=== PATIENT | female | born 1995 | race African-American/Black ===

== ENCOUNTER 2017-03-20 05:47 | Emergency (ER) | payer MEDICAID ==
[2017-03-20] MEDS ORDERED: NS 0.9% 1000 ML* 1,000 ML IV ONE (06:15)
--- NOTE | 2017-03-20 06:59 | ED ---
Duncan Salas Thomas, scribed for Richie Boland on 03/20/17 at 0622 . Abdominal Pain/Female - HPI Summary HPI Summary: The patient is a 21 year old female complaining of right-sided abdominal pain for the last two hours. She complains of nausea and diarrhea. She denies vomiting. - History of Current Complaint Chief Complaint: EDAbdPain Stated Complaint: ABD PAIN, FEVER Time Seen by Provider: 03/20/17 06:11 Hx Obtained From: Patient Onset/Duration: Lasting Hours - 2, Still Present Timing: Constant Severity Currently: Moderate Pain Intensity: 7 Pain Scale Used: 0-10 Numeric Aggravating Factor(s): Nothing Alleviating Factor(s): Nothing Associated Signs and Symptoms: Positive: Nausea, Diarrhea. Negative: Vomiting Allergies/Adverse Reactions: Allergies Allergy/AdvReac Type Severity Reaction Status Date / Time No Known Allergies Allergy Verified 03/20/17 06:41 PMH/Surg Hx/FS Hx/Imm Hx Endocrine/Hematology History: Denies: Hx Diabetes Cardiovascular History: Denies: Hx Hypertension Respiratory History: Reports: Hx Asthma History: Denies: Hx Renal Disease Neurological History: Reports: Hx Migraine Psychiatric History: Reports: Hx Anxiety, Hx Depression - SAD Infectious Disease History: No Infectious Disease History: Denies: Hx Clostridium Difficile, Hx of Known/Suspected MRSA, Hx Known/ Suspected VRE, Hx Known/Suspected VRSA, History Other Infectious Disease, Traveled Outside the [place] in Last 30 Days - Family History Known Family History: Positive: Other - Patient denies relevant FHx - Social History Alcohol Use: Rare Substance Use Type: Reports: None Smoking Status (MU): Never Smoked Tobacco Review of Systems Negative: Fever Positive: Abdominal Pain, Diarrhea, Nausea. Negative: Vomiting All Other Systems Reviewed And Are Negative: Yes Physical Exam - Summary Physical Exam Summary: Appearance: Well appearing, no pain distress Skin: warm, dry, reflects adequate perfusion Head/face: normal Eyes: EOMI, NICK ENT: normal Neck: supple, non-tender Respiratory: CTA, breath sounds present Cardiovascular: RRR, pulses symmetrical Abdomen: Soft. RLQ abdominal tenderness. Bowel: present Musculoskeletal: normal, strength/ROM intact Neuro: normal, sensory motor intact, A&Ox3 Triage Information Reviewed: Yes Vital Signs On Initial Exam: Initial Vitals Temp Pulse Resp BP Pulse Ox 98.3 F 69 18 104/57 99 03/20/17 05:51 03/20/17 05:51 03/20/17 05:51 03/20/17 05:51 03/20/17 05:51 Vital Signs Reviewed: Yes Diagnostics - Vital Signs Vital Signs Temp Pulse Resp BP Pulse Ox 03/20/17 05:51 98.3 F 69 18 104/57 99 - Laboratory Lab Statement: Any lab studies that have been ordered have been reviewed, and results considered in the medical decision making process. - EKG 23:53 Cardiac Rate: NL EKG Rhythm: Sinus Rhythm - at 74 BPM EKG Interpretation: RBBB. Abdominal Pain Fem Course/Dx - Course Course Of Treatment: The patient is a 21 year old female complaining of right- sided abdominal pain for the last two hours. She has RLQ tenderness. In the ED course the patient was given IV fluids. Bloodwork and urinalysis were obtained. The patient will be signed out to Dr. Montez pending CT Abd/Pel and labs. - Diagnoses Provider Diagnoses: Abdominal pain Discharge - Discharge Plan Condition: Stable Disposition: OTHER Discharge Disposition Comment: Signed out to Dr. Montez pending CT Abd/Pel and labs. Referrals: [facility] [Primary Care Provider] - The documentation as recorded by the Duncan quach Thomas accurately reflects the service I personally performed and the decisions made by Kya philip Emmanuel.
[2017-03-20 07:17] LABS: Urine Appearance Clear; Urine Blood Negative (Negative); Urine Color Yellow; Urine Ketones Trace (Negative); Urine Protein Negative (Negative); Urine Specific Gravity 1.026 (1.010-1.030); Urine Urobilinogen Negative (Negative)
[2017-03-20 07:35] LABS: ABS Basophils 0.1 10^3/ul (0-0.2); ABS Eosinophils 0.6 10^3/ul (0-0.6); ABS Monocytes 0.6 10^3/ul (0-0.8); ABS Neutrophils 5.7 10^3/ul (1.5-7.7); ABS Nucleated RBC 0 10^3/ul; Eosinophil % 6.9 % (0-6); Hematocrit 41 % (35-47); Hemoglobin 13.9 g/dl (12.0-16.0); Lymphocyte % 22.5 % (25-47); Mean Corpuscular HGB Conc 34 g/dl (31-36); Mean Corpuscular Hemoglobin 31 pg (27-31); Mean Corpuscular Volume 91 fL (80-97); Mean Platelet Volume 7 um3 (7.4-10.4); Nucleated Red Blood Cells % 0; Platelet Count 420 10^3/ul (150-450); Red Blood Count 4.49 10^6/ul (4.0-5.4); Red Cell Distribution Width 13 % (10.5-15); White Blood Count 9.1 10^3/ul (3.5-10.8)
[2017-03-20 07:52] LABS: EGFR Non-African American 75.4 (>60)
[2017-03-20 08:48] LABS: INR 1.05 (0.77-1.02)
[2017-03-20] MEDS ORDERED: Iohexol 300* (CONTRAST) 10 ML SDV IV ONE (08:48)
--- NOTE | 2017-03-20 09:27 | RAD ---
INDICATION: Right lower quadrant pain. Evaluate for acute appendicitis COMPARISON: CT abdomen pelvis October 22, 2013 TECHNIQUE: Axial source images were obtained from the hemidiaphragms to the symphysis pubis following administration of oral and intravenous contrast. 127 mL Omnipaque 300 was utilized. Coronal and sagittal reconstructed images were acquired. Lung bases: The lung bases are clear. Liver: The liver is normal in size. There are no masses. There is no ductal dilatation. Gallbladder: There are no calcified gallstones. There is no evidence of wall thickening or pericholecystic fluid. Spleen: The spleen is normal in size. There are no masses. Pancreas: There is no focal pancreatic mass or ductal dilatation. Adrenal glands: There is no evidence of adrenal mass. Kidneys: The kidneys are normal in size and position. There are prompt nephrograms and there is prompt excretion bilaterally. There are no renal parenchymal masses. There is no evidence of nephrolithiasis. Adenopathy: There is no evidence of adenopathy by size criteria. Fluid collections: There are no free or localized fluid collections. Vessels:There are no significant atherosclerotic changes involving the aorta. There is no focal aneurysm. The iliac vessels are normal in caliber. The IVC appears normal. GI tract: There are no acute CT bowel findings. There is no obstruction. The stomach and small bowel appear normal. The lower GI tract is normal. The cecum, ileocecal valve, and terminal ileum appear normal. The appendix is visualized and appear normal. Pelvic organs: The uterus and adnexa appear normal Bladder: There are no bladder masses. Abdominal and pelvic soft tissues: The extraperitoneal abdominal and pelvic soft tissues appear normal.. Osseous structures: There are no acute osseous findings. Other: None IMPRESSION: NO ACUTE CT FINDINGS. NO MASS OR INFLAMMATORY CHANGES. NORMAL APPENDIX.
[2017-03-20 11:15] VITALS: BP 98/57
--- NOTE | 2017-03-20 11:17 | ED ---
Raj Salas Angela, scribed for Gui Montez MD on 03/20/17 at 0721 . Progress - Progress Note Progress Note: This pt was signed out from Dr. Boland, pending disposition, awaiting CT abdomen /pelvis. Pt is a 21 y/o female presenting to [facility] c/o right sided abd pain since 04:00 today. Pt reports her pain woke her up from sleep. She notes she couldn't go back to sleep due to pain and came to the ED. Currently she notes her pain a little better. Physical Exam: VITAL SIGNS: Reviewed. GENERAL: Patient is an obese female who is lying comfortable in the stretcher. Patient is not in any acute respiratory distress. HEAD AND FACE: Normocephalic and atraumatic. EYES: PERRLA, EOMI x 2, No injected conjunctiva. EARS: Hearing grossly intact. Ear canals and tympanic membranes are WNL. MOUTH: Oropharynx within normal limits. NECK: Supple, trachea is midline, no adenopathy, no JVD. CHEST: Symmetric, no tenderness at palpation LUNGS: Clear to auscultation bilaterally. No wheezing or crackles. CVS: RRR, S1 and S2 present, no murmurs or gallops appreciated. ABDOMEN: Soft, non-tender. No signs of distention. Positive bowel sounds. No rebound no guarding, and no masses palpated. No abdominal bruit or pulsations. EXTREMITIES: FROM in all major joints, no edema, no cyanosis or clubbing. NEURO: Alert and oriented x 3. No acute neurological deficits. Speech is normal. SKIN: Dry and warm Pt will be discharged to home, in stable condition, with a diagnosis of abdominal pain. Condition: Stable Disposition: Home - Results/Orders Results/Orders: CT Abdomen/Pelvis, as read by radiologist: IMPRESSION: No acute CT findings. No mass or inflammatory changes. Normal appendix. Dr. Montez has reviewed this radiology report. Re-Evaluation - Re-Evaluation First Eval Re-Evaluation Time: 10:51 Comment: I reviewed the CT abdomen/pelvis and lab results with the pt. She notes her pain is a bit better. Course/Dx - Course Course Of Treatment: This pt was signed out by Dr. Boland to follow up on the abdomen/pelvis CT. Dr. Boland offered the pt a pelvic exam but pt declined. All the test results are within normal limits. Abdomen/Pelvis CT shows no acute CT findings. No mass or inflammatory changes. Normal appendix. Since the pt is feeling better, she will be discharged home with follow up from PCP. - Diagnoses Provider Diagnoses: Abdominal pain The documentation as recorded by the Raj quach Angela accurately reflects the service I personally performed and the decisions made by me, Gui Montez MD.
== END 2017-03-20 11:16 ==
LOC: ED 05:47
DX: R10.9 Unspecified abdominal pain (principal); R11.0 Nausea; R19.7 Diarrhea, unspecified; R50.9 Fever, unspecified
CPT/HCPCS: 36415; 74177; 80053; 81003; 83605; 83690; 84702; 85025; 85610; 85730; 99282; Q9967